=== PATIENT | male | born 1965 | race Caucasian/White ===

== ENCOUNTER 2017-01-30 11:21 | Outpatient (CLI) | payer BC | END 2017-01-30 19:22 | disposition home or self-care (01) | LOC: SRD 11:21 | PROVIDERS: ATTEND Internal Medicine | DX: M47.892 Other spondylosis, cervical region (principal) | CPT/HCPCS: 72050-TC ==

== ENCOUNTER 2017-03-23 14:17 | Outpatient (CLI) | payer BC | END 2017-03-24 07:22 | disposition home or self-care (01) | LOC: SRD 14:17 | PROVIDERS: ATTEND Internal Medicine | DX: Z01.818 Encounter for other preprocedural examination (principal); R05 Cough | CPT/HCPCS: 71020-TC ==

== ENCOUNTER 2019-07-12 11:21 | Emergency (ER) | payer BC ==
[~2019-07-12] VITALS: Ht 185.4 cm; Wt 92.5 kg
[2019-07-12 11:21] VITALS: BP_SYST 147
--- NOTE | 2019-07-12 11:21 | NUR ---
Patient triaged and placed in waiting room. VSS and patient appears in no acute distress at this time. Accompanied by SELF, awaiting available bed, and MD notified of need for MSE.
[2019-07-12] MEDS ORDERED: NACL 0.9% 1,000 ML IV ONE (12:15)
--- NOTE | 2019-07-12 12:16 | NUR ---
Patient to ER bed 04 to gown for evaluation. Side rails up.
--- NOTE | 2019-07-12 12:20 | NUR ---
Patient is awake, alert, and oriented x4. Patient reports nausea, vomiting, diarrhea, abdominal pain, hot flashes and cold chills since Monday. Patient reports that he went to [facility] and had ceviche and shrimp. Patient reports aching abdominal pain 2/10 with occasional cramping, last episode diarrhea was this morning.
--- NOTE | 2019-07-12 12:25 | NUR ---
OG Connell at bedside examining patient.
[2019-07-12] MEDS ORDERED: LOPERAMIDE HCL 2 MG CAPSULE PO ONE (12:30)
[2019-07-12] MEDS ORDERED: KETOROLAC TROMETHAMINE 30 MG VIAL IVP ONE (12:30)
[2019-07-12 12:46] LABS: BASOPHILS # (AUTO) 0.1 K/uL (0.0-0.2); BASOPHILS % (AUTO) 0.4 % (0.0-2.0); EOSINOPHILS # (AUTO) 0.1 K/uL (0.0-0.4); EOSINOPHILS % (AUTO) 0.5 % (0.0-4.0); HEMATOCRIT 49.3 % (36-54); LYMPHOCYTES # (AUTO) 1.9 K/uL (1.0-5.5); LYMPHOCYTES % (AUTO) 16.5 % (20.5-51.5); MEAN CORPUSCULAR HEMOGLOBIN 32 pg (27-31); MEAN CORPUSCULAR HGB CONC 35 % (32-36); MEAN CORPUSCULAR VOLUME 92 fL (79.0-98.0); MONOCYTES # (AUTO) 1.6 K/uL (0.0-1.0); MONOCYTES % (AUTO) 14.2 % (1.7-9.3); NEUTROPHILS # (AUTO) 7.9 K/uL (1.8-7.7); PLATELET COUNT (AUTO) 237 K/uL (130-430); RED BLOOD CELL COUNT(AUTO) 5.38 MIL/uL (4.2-6.2); RED CELL DISTRIBUTION WIDTH 12.9 % (9.0-15.0); WHITE BLOOD COUNT (AUTO) 11.5 K/uL (4.8-10.8)
[2019-07-12 12:58] LABS: CALCIUM 8.8 mg/dL (8.4-11.0); CREATININE 1.18 mg/dL (0.55-1.30); POTASSIUM 3.7 mmol/L (3.5-5.1)
[2019-07-12 13:04] LABS: ALBUMIN 3.4 g/dL (3.4-4.8); TOTAL BILIRUBIN 0.3 mg/dL (0.0-1.0)
[2019-07-12 13:26] LABS: NEUTROPHILS % (AUTO) 68.4 % (40.0-70.0)
[2019-07-12 13:39] VITALS: BP_SYST 134
== END 2019-07-12 13:39 | disposition home or self-care (01) ==
LOC: SED 11:21
DX: K52.9 Noninfective gastroenteritis and colitis, unspecified (principal); R51 Headache; E78.00 Pure hypercholesterolemia, unspecified; Z88.0 Allergy status to penicillin
CPT/HCPCS: 36415; 80053; 85025; 96361; 96374; 99283; J1885; J7030

== ENCOUNTER 2019-12-11 13:38 | Emergency (ER) | payer BC ==
[~2019-12-11] VITALS: Ht 185.4 cm; Wt 97.5 kg
[2019-12-11 13:38] VITALS: BP_SYST 134
--- NOTE | 2019-12-11 13:38 | NUR ---
BROUGHT BACK TO BED #8 AND TRIAGED. REPORT GIVEN TO TRISTEN
--- NOTE | 2019-12-11 13:51 | NUR ---
DR BUTT AT BEDSIDE FOR EVALUATION
--- NOTE | 2019-12-11 14:06 | NUR ---
DR BUTT SPEAKING WITH PTS UROLOGIST DR ALBRECHT.
== END 2019-12-11 14:13 | disposition home or self-care (01) ==
LOC: SED 13:38
DX: S30.21XA Contusion of penis, initial encounter (principal); E78.00 Pure hypercholesterolemia, unspecified; Z88.0 Allergy status to penicillin; X58.XXXA Exposure to other specified factors, initial encounter; Y93.89 Activity, other specified; Y92.89 Other specified places as the place of occurrence of the external cause; Y99.8 Other external cause status
CPT/HCPCS: 99281

== ENCOUNTER 2024-03-25 14:49 | Emergency (ER) | payer BC, OTHER ==
[~2024-03-25] VITALS: Ht 185.4 cm; Wt 99.8 kg
[2024-03-25 15:18] VITALS: BP_SYST 139; PULSE 87; RESP 17; TEMP 97.8; O2SAT 95
[2024-03-25 16:26] LABS: BASOPHILS % (AUTO) 0.5 % (0.0-2.0); EOSINOPHILS # (AUTO) 0.2 K/uL (0.0-0.4); EOSINOPHILS % (AUTO) 2.3 % (0.0-4.0); HEMATOCRIT 45.3 % (36-54); HEMOGLOBIN 15.6 g/dL (14.0-18.0); LYMPHOCYTES # (AUTO) 2.3 K/uL (1.0-5.5); LYMPHOCYTES % (AUTO) 24.5 % (20.5-51.5); MEAN CORPUSCULAR HEMOGLOBIN 31 pg (27-31); MEAN CORPUSCULAR HGB CONC 34 % (32-36); MEAN CORPUSCULAR VOLUME 91 fL (79.0-98.0); MONOCYTES # (AUTO) 0.9 K/uL (0.0-1.0); NEUTROPHILS # (AUTO) 5.9 K/uL (1.8-7.7); NEUTROPHILS % (AUTO) 62.7 % (40.0-70.0); PLATELET COUNT (AUTO) 306 K/uL (130-430); RED BLOOD CELL COUNT(AUTO) 4.99 MIL/uL (4.2-6.2); RED CELL DISTRIBUTION WIDTH 13.2 % (9.0-15.0); WHITE BLOOD COUNT (AUTO) 9.3 K/uL (4.8-10.8)
[2024-03-25 16:39] LABS: CALCIUM 9.2 mg/dL (8.4-11.0); CREATININE 1.26 mg/dL (0.55-1.30); POTASSIUM 4.8 mmol/L (3.5-5.1)
[2024-03-25] MEDS ORDERED: MECL-225 PO (17:10)
[2024-03-25 17:50] VITALS: BP_SYST 139; PULSE 87; RESP 17; TEMP 97.8; O2SAT 95
== END 2024-03-25 17:50 | disposition home or self-care (01) ==
LOC: SED 14:49
DX: S09.90XA Unspecified injury of head, initial encounter (principal); M54.2 Cervicalgia; R42 Dizziness and giddiness; Z85.46 Personal history of malignant neoplasm of prostate; Z88.0 Allergy status to penicillin; W18.39XA Other fall on same level, initial encounter; Y93.89 Activity, other specified; Y92.89 Other specified places as the place of occurrence of the external cause; Y99.8 Other external cause status
CPT/HCPCS: 36415; 70450-TC; 72125-TC; 80048; 85025; 93005; 99284